=== PATIENT | female | born 1965 | race Two or more races ===

== ENCOUNTER 2016-11-10 14:54 | Emergency (ER) | payer SELFPAY ==
[~2016-11-10] VITALS: Ht 157.5 cm; Wt 59.0 kg
[~2016-11-10 14:54] MED LIST: CEPH500C PO
[2016-11-10 15:00] VITALS: BP 124/79
[2016-11-10] MEDS ORDERED: CYCL10TA2 PO (15:16)
[2016-11-10] MEDS ORDERED: TRAM50TA PO (15:16)
[2016-11-10] MEDS ORDERED: NAPR500T PO (15:16)
--- NOTE | 2016-11-10 15:16 | PHYS DOC ---
Adult General Chief Complaint Chief Complaint: BACK PAIN OR INJURY HPI HPI Patient is a 51 year old year old female that presents to the ED with a five day history of right low back pain with radiation to the tight hip. Pt is kiswahili speaking a bilingual staff member is the plant attendant. Pt states that she was riding a water slide when the pain began. She states that the ride was rough but she did not fall or hit anything. She denies loss of bowel or bladder control, no saddle anes., no loss of function of LE. Review of Systems Review of Systems Constitutional: Denies fever or chills [] Eyes: Denies change in visual acuity, redness, or eye pain [] HENT: Denies nasal congestion or sore throat [] Respiratory: Denies cough or shortness of breath [] Cardiovascular: No additional information not addressed in HPI [] GI: Denies abdominal pain, nausea, vomiting, bloody stools or diarrhea [] : Denies dysuria or hematuria [] Musculoskeletal: low back pain, right hip pain Integument: Denies rash or skin lesions [] Neurologic: Denies headache, focal weakness or sensory changes [] Endocrine: Denies polyuria or polydipsia [] Physical Exam Physical Exam Constitutional: Well developed, well nourished, no acute distress, non-toxic appearance. [] Neck: Normal range of motion, no midline tenderness [] Cardiovascular:Heart rate regular rhythm, no murmur [] Lungs & Thorax: Bilateral breath sounds clear to auscultation [] Abdomen: Bowel sounds normal, soft, no tenderness, no masses, no pulsatile masses. [] Skin: Warm, dry, no erythema, no rash. [] Back: mild tenderness right sacroiliac crest and lateral hip and thigh. Negative straight raise leg test, no saddle anes. NVI. MS 5/5, DTR 2/4 Extremities: No tenderness, no cyanosis, no clubbing, ROM intact, no edema. [] Neurologic: Alert and oriented X 3, normal motor function, normal sensory function, no focal deficits noted. [] Psychologic: Affect normal, judgement normal, mood normal. [] EKG EKG [] Radiology/Procedures Radiology/Procedures [] Course & Med Decision Making Course & Med Decision Making Pertinent Labs and Imaging studies reviewed. (See chart for details) [] Dragon Disclaimer Dragon Disclaimer This electronic medical record was generated, in whole or in part, using a voice recognition dictation system. Departure Departure Impression: Primary Impression: Sciatica Disposition: 01 HOME, SELF-CARE Condition: STABLE [facility]errals: [facility] Patient Instructions: Sciatica Scripts Tramadol Hcl (TRAMADOL HCL) 50 Mg Tablet 50 MG PO DAILY Y for PAIN, #12 TAB 0 Refills Prov: JESU HENDERSON APRN 11/10/16 Naproxen (NAPROSYN) 500 Mg Tablet 500 MG PO BID, #20 TAB Prov: JESU HENDERSON APRN 11/10/16 Cyclobenzaprine Hcl (CYCLOBENZAPRINE HCL) 10 Mg Tablet 10 MG PO TID, #30 TAB Prov: JESU HENDERSON APRN 11/10/16 Problem Qualifiers Primary Impression: Sciatica Laterality: right Qualified Codes: M54.31 - Sciatica, right side JESU HENDERSON BUSINESS SERVICES ANALYST Nov 10, 2016 15:16
== END 2016-11-10 15:40 | disposition home or self-care (01) ==
LOC: MERGE 14:54 → ER 14:54
DX: M54.41 Lumbago with sciatica, right side (principal)
CPT/HCPCS: 99283

== ENCOUNTER 2021-01-24 18:56 | Emergency (ER) | payer SELFPAY ==
[~2021-01-24] VITALS: Ht 154.9 cm; Wt 63.6 kg
[~2021-01-24 18:56] MED LIST changes: +CYCL10TA2 PO; +NAPR-683 PO; +TRAM50TA PO
[2021-01-24 19:10] VITALS: BP 133/86
[2021-01-24] MEDS ORDERED: METH4TAB2 PO (19:24)
--- NOTE | 2021-01-24 19:26 | PHYS DOC ---
Past Medical History Past Medical History: No Pertinent History Past Surgical History: No Surgical History Smoking Status: Never Smoker Alcohol Use: None Drug Use: None General Adult HPI: HPI: Patient is a 55-year-old female presenting for rash. Onset was 2 days ago. States she was at work and putting away towels with an unknown allergen/chemical product on it. She reports later after work that she started developing a red rash that was itchy with some mild blisters and wheals. States at times it abbasi and is sometimes painful. She took 25 mg Benadryl this morning at 7 AM with some mild symptom relief but due to ongoing presence of rash, patient presented for evaluation. Otherwise states she is healthy, no known medical issues no known medications on a daily basis. Review of Systems: Review of Systems: Fourteen body systems of review of systems have been reviewed. See HPI for pertinent positives and negative responses, other guzman all other systems are negative, non-pertinent or non-contributory Heart Score: C/O Chest Pain: No Risk Factors: Risk Factors: DM, Current or recent (<one month) smoker, HTN, HLP, family history of CAD, obesity. Risk Scores: Score 0 - 3: 2.5% MACE over next 6 weeks - Discharge Home Score 4 - 6: 20.3% MACE over next 6 weeks - Admit for Clinical Observation Score 7 - 10: 72.7% MACE over next 6 weeks - Early Invasive Strategies Allergies: Allergies: Allergies Coded Allergies Type Severity Reaction Last Updated Verified No Known Drug Allergies 09/10/15 No Physical Exam: PE: Constitutional: Well developed, well nourished, no acute distress, non-toxic appearance. HENT: Normocephalic, atraumatic, bilateral external ears normal, oropharynx moist, no oral exudates, nose normal. Eyes: PERRLA, EOMI, conjunctiva normal, no discharge. Neck: Normal range of motion, no tenderness, supple, no stridor. Cardiovascular: Heart rate regular per monitor Lungs & Thorax: No respiratory distress or accessory muscle use, bilateral chest rise Abdomen: Abdomen soft, non-tender, bowel sounds present in all quadrants, no guarding or rebound, nonacute abdomen. Skin: Warm, dry, no erythema, rash present to bilateral upper extremities, anterior torso around neck and around base of right orbit Back: No tenderness, no CVA tenderness. Extremities: No tenderness, no cyanosis, no clubbing, ROM intact, no edema. Neurologic: Alert and oriented X 3, grossly normal motor & sensory function, no focal deficits noted. Psychologic: Affect normal, judgement normal, mood normal. Current Patient Data: Vital Signs: Vital Signs Date Time Temp Pulse Resp B/P (MAP) Pulse Ox O2 Delivery O2 Flow Rate FiO2 01/24/21 19:10 99.0 89 20 133/86 (102) 93 Room Air 99.0 Vital Signs Date Time Temp Pulse Resp B/P (MAP) Pulse Ox O2 Delivery O2 Flow Rate FiO2 01/24/21 19:10 99.0 89 20 133/86 (102) 93 Room Air 99.0 EKG: EKG: [] Radiology/Procedures: Radiology/Procedures: [] Course & Med Decision Making: Course & Med Decision Making ABCs unremarkable HPI and physical examination consistent with contact dermatitis. Patient is well-appearing with no concerns for anaphylaxis or other concerning findings indicating need for further diagnostic work-up or aggressive ER intervention Benadryl administered while in ER with joint decision made to start Medrol Dosepak on departure. Strict return precautions discussed at length with good verbalized understanding by patient prior to ER departure. All questions and concerns addressed Dragon Disclaimer: Jeronimo Disclaimer: This electronic medical record was generated, in whole or in part, using a voice recognition dictation system. Departure Departure Impression: Primary Impression: Contact dermatitis Disposition: HOME / SELF CARE / HOMELESS Condition: STABLE Referrals: NO PCP (PCP) Patient Instructions: Contact Dermatitis, [id number] Additional Instructions: You were seen for a rash due to contact dermatitis. At home: *Start the oral steroid (Prednisone/Orapred) and use emollients and barrier protection with product such as Aquaphor *Give oral Benadryl every 6 hours, as needed for itching *Calamine lotion and oatmeal baths may also help Return to your doctor or the Emergency Room if your child seems worse, has signs of skin infection (weeping/scabbing wounds), develops a fever, or if you have any other concerns. Scripts Methylprednisolone (MEDROL) 4 Mg Tab.ds.pk 1 PKG PO UD, #1 PKG Prov: FABIO GUNTER DO 01/24/21 FABIO GUNTER DO Jan 24, 2021 19:26
[2021-01-24] MEDS ORDERED: diphenhydrAMINE HCL 25 MG CAPSULE PO ONE (19:30)
== END 2021-01-24 19:59 | disposition home or self-care (01) ==
LOC: ER 18:56
DX: L25.9 Unspecified contact dermatitis, unspecified cause (principal)
CPT/HCPCS: 99283; Q0163